=== PATIENT | female | born 1995 | race Hispanic/Latino ===

== ENCOUNTER 2018-01-21 12:59 | Outpatient (CLI) | payer OTHER ==
--- NOTE | 2018-01-21 13:50 | RAD ---
SI JOINTS GREATER THAN OR EQUAL TO 3 VIEWS: HISTORY: Bilateral pain. COMPARISON: None. FINDINGS: Mild sclerosis of the ileum bilaterally at the SI joints which appear to be within normal limits. No erosions. No parostitis. Pubic symphysis is only mildly narrowed. Hip joints are normal. IMPRESSION: Low-grade sclerosis of the ileum at the ileal side sacroiliac joints bilaterally without significant erosions. These may be reactive in nature. POS: [facility]
== END 2018-01-21 13:00 | disposition home or self-care (01) ==
LOC: SCSRAD 12:59
PROVIDERS: ATTEND Family Medicine
DX: M53.3 Sacrococcygeal disorders, not elsewhere classified (principal); M89.8X8 Other specified disorders of bone, other site
CPT/HCPCS: 72202

== ENCOUNTER 2018-03-14 03:26 | Emergency (ER) | payer OTHER ==
[2018-03-14] MEDS ORDERED: diphenhydrAMINE 50 MG/ML VIAL ONE (05:01)
[2018-03-14] MEDS ORDERED: predniSONE 20 MG TAB ONE (05:01)
[2018-03-14] MEDS ORDERED: Famotidine 20 MG TAB ONE (05:01)
== END 2018-03-14 06:36 | disposition home or self-care (01) ==
LOC: ERS 03:26
DX: T78.40XA Allergy, unspecified, initial encounter (principal); F32.9 Major depressive disorder, single episode, unspecified
CPT/HCPCS: 96361; 96374; J1200; J7506